=== PATIENT | female | born 1980 | race African-American/Black ===

== ENCOUNTER 2024-06-10 13:29 | Emergency (ER) | payer SELFPAY ==
[~2024-06-10] VITALS: Ht 165.1 cm; Wt 70.0 kg
[2024-06-10 13:32] VITALS: O2SAT 100
[2024-06-10] MEDS: ACETAMINOPHEN 325MG TABLET PO ONE (13:51)
[2024-06-10 18:15] VITALS: BP 160/103; PULSE 67; RESP 18; TEMP 37; O2SAT 100
== END 2024-06-10 18:51 | disposition home or self-care (01) ==
LOC: ER 13:29
DX: S01.01XA Laceration without foreign body of scalp, initial encounter (principal); I10 Essential (primary) hypertension; W01.0XXA Fall on same level from slipping, tripping and stumbling without subsequent striking against object, initial encounter; Y93.89 Activity, other specified; Y92.89 Other specified places as the place of occurrence of the external cause; Y99.8 Other external cause status
CPT/HCPCS: 70450; 72125; 12001; 99291; Z7610 ×4